=== PATIENT | male | born 2000 | race African-American/Black ===

== ENCOUNTER 2023-05-22 22:10 | Emergency (ER) | payer OTHER ==
[~2023-05-22] VITALS: Ht 185.4 cm; Wt 88.6 kg
[2023-05-22 22:22] VITALS: TEMP 98.6
[2023-05-22 23:32] LABS: BASO % 0.7 % (0.0-2.0); EOS # 0.2 K/mm3 (0.0-0.7); EOS % 3.7 % (0.0-4.0); GRAN # 2.1 K/mm3 (1.4-6.5); GRAN % 49.2 % (42.2-75.2); HEMATOCRIT 44.4 % (42.0-52.0); HEMOGLOBIN 13.7 g/dl (13.5-18.0); LYMPH # 1.4 K/mm3 (1.2-3.4); LYMPH % 31.2 % (20.0-51.0); MEAN CELL VOLUME 74 fl (80.0-100.0); MEAN CORPUSCULAR HEMOGLOBIN 23 pg (27-31); MEAN CORPUSCULAR HGB CONC 31 g/dl (33.0-37.0); MEAN PLATELET VOLUME 9.3 fl (7.4-10.4); MONO # 0.7 K/mm3 (0.1-0.6); PLATELET COUNT 280 K/mm3 (130-400); RED BLOOD COUNT 6.02 M/mm3 (4.20-5.60); REDCELL DISTRIBUTION WIDTH-CV 13.2 % (11.5-14.5)
[2023-05-22 23:52] LABS: ALBUMIN 3.8 gm/dL (3.5-5.0); BILIRUBIN,TOTAL 0.4 mg/dL (0.2-1.2); CALCIUM 9.7 mg/dL (8.4-10.2); CREATININE, serum 1.08 mg/dL (0.72-1.25); POTASSIUM 3.6 mmol/L (3.5-4.5); TOTAL PROTEIN 8.1 gm/dL (6.2-8.1)
[2023-05-23 01:02] VITALS: BP 147/79; PULSE 77
== END 2023-05-23 01:04 | disposition home or self-care (01) ==
LOC: COL.ER 22:10
PROVIDERS: Emergency Medicine
DX: R13.19 Other dysphagia (principal)
CPT/HCPCS: J7030